=== PATIENT | female | born 1975 | race African-American/Black ===

== ENCOUNTER 2024-11-05 14:58 | Inpatient (IN) | payer MEDICAID ==
[~2024-11-05] VITALS: Ht 157.5 cm; Wt 71.9 kg
[~2024-11-05 14:58] MED LIST: AMLO5TAB88 MT; APIX5TAB MT; ATOR10TA69 PO; B1/B1TAB5 MT; CRAN450T10 MT; ESCI20TA37 PO; FERR-71 MT; GABA-1180 MT; HYDR8TAB18 PO; IPRA3AMP9 NEB; METH-819 PO; ONDA4TAB50 PO; OXYC-580 PO; PANT40TA51 PO; POLY17PO3 MT; SODI15VI INH; VITA100T MT; [UNRECOGNIZED DRUG - CODE] PO
[2024-11-05] MEDS ORDERED: CEFEPIME 2GM IN DEXT 5% 100ML IV ONE (15:30)
[2024-11-05] MEDS: VANCOMYCIN 1G PREMIX 200 ML IV ONE (16:00)
[2024-11-05] MEDS: SODIUM CHLORIDE 0.9% (SEPSIS BOLUS) IV ONE (16:04)
[2024-11-05] MEDS: PANTOPRAZOLE SODIUM 40 MG/VIAL IV ONE (16:04)
[2024-11-05] MEDS: METHYLPREDNISOLONE SOD SUCC 125MG/2ML (ACT-O-VIAL) IV ONE (16:04)
[2024-11-05 16:26] VITALS: PULSE 106; RESP 15; O2SAT 100
[2024-11-05] MEDS: IPRATROPIUM/ALBUTEROL 0.5-3(2.5)MG/3ML NEB HHN ONE (16:26)
[2024-11-05 16:39] LABS: BASOPHILS % 0.7 % (0.0-2.0); DIFFERENTIAL COMMENT 0; EOSINOPHILS % 1.2 % (0.0-5.0); HEMATOCRIT. 30.8 % (36.0-48.0); HEMOGLOBIN. 9.5 g/dL (12.0-16.0); LYMPHOCYTES % 8.6 % (20.0-50.0); MEAN CORPUSCULAR HEMOGLOBIN 23.9 pg (28.0-32.0); MEAN CORPUSCULAR HGB CONC 30.9 g/dL (31.0-37.0); MEAN CORPUSCULAR VOLUME 77.1 fL (81.0-99.0); MEAN PLATELET VOLUME 7.8 fl (7.4-10.4); NEUTROPHILS % 83.5 % (40.0-76.0); PLATELET 611 x1000/uL (130-400); RED BLOOD CELL COUNT 3.99 mill/uL (4.2-5.4); RED CELL DISTRIBUTION WIDTH 17.8 % (11.6-14.6); WHITE BLOOD COUNT 6.5 x1000/uL (4.5-11.0)
[2024-11-05 16:55] LABS: CARBON DIOXIDE 24 mEq/L (21-32); CHLORIDE 98 mEq/L (98-107); SODIUM 133 mEq/L (136-145)
[2024-11-05 16:56] LABS: CALCIUM 8.6 mg/dL (8.7-10.4)
[2024-11-05 17:00] LABS: CREATININE 0.7 mg/dL (0.6-1.0); GLUCOSE 69 mg/dL (70-105)
[2024-11-05 17:01] LABS: UREA NITROGEN BLOOD 10 mg/dL (9-23)
[2024-11-05 17:02] LABS: ALANINE AMINOTRANSFERASE 14 IU/L (10-49); ALBUMIN 3.4 g/dL (3.2-4.8); ASPARTATE AMINOTRANSFERASE 108 IU/L (<34); HCG SCREEN NEGATIVE; LACTATE DEHYDROGENASE > 750 IU/L (120-246)
[2024-11-05 17:03] LABS: BILIRUBIN TOTAL 0.3 mg/dL (0.1-1.0); PROTEIN TOTAL 7.1 g/dL (6.0-8.3)
[2024-11-05 17:04] LABS: BILIRUBIN DIRECT < 0.1 mg/dL (<=3.0); TROPONIN I HIGH SENSITIVITY < 4 ng/L (3.0-34)
[2024-11-05 17:05] LABS: PROTHROMBIN TIME 11.1 sec (9.6-11.0)
[2024-11-05 17:12] LABS: CLARITY URINE CLEAR (CLEAR); COLOR URINE YELLOW (YELLOW); GLUCOSE URINE NEGATIVE (NEGATIVE); KETONES URINE TRACE (NEGATIVE); LEUKOCYTE ESTERASE URINE 2+ (NEGATIVE); NITRITE URINE NEGATIVE (NEGATIVE); OCCULT BLOOD URINE TRACE (NEGATIVE); PH URINE 7.5 (4.5-8.0); PROTEIN URINE NEGATIVE (NEGATIVE); SPECIFIC GRAVITY URINE 1.019 (1.005-1.030)
[2024-11-05] MEDS: CEFEPIME 2GM/50ML DUPLEX 50 ML IV NR (17:30)
[2024-11-05] MEDS: HYDROMORPHONE HCL/PF 2MG/ML INJ IV ONE ×2 (18:10→19:08)
[2024-11-05] MEDS: HYDROMORPHONE HCL/PF 1MG/ML INJ IV NR (18:15)
[2024-11-05 19:06] LABS: BACTERIA URINE 1+; RBC URINE 0-2 /hpf (0-2); SQUAMOUS EPITHELIAL CELL URINE 1+ /lpf (RARE/1+)
[2024-11-05 20:24] LABS: CHLORIDE 101 mEq/L (98-107); POTASSIUM 4.2 mEq/L (3.5-5.1); SODIUM 135 mEq/L (136-145)
[2024-11-05 20:25] LABS: CALCIUM 8.3 mg/dL (8.7-10.4); CARBON DIOXIDE 25 mEq/L (21-32)
[2024-11-05 20:30] LABS: CREATININE 0.6 mg/dL (0.6-1.0); GLUCOSE 85 mg/dL (70-105); UREA NITROGEN BLOOD 10 mg/dL (9-23)
[2024-11-05] MEDS ORDERED: PIPERACILLIN/TAZOBACTAM 3.375 G in DEXTROSE 5% WATER 50 ML IV SCH (21:45)
[2024-11-05] MEDS ORDERED: IPRATROPIUM/ALBUTEROL 0.5-3(2.5)MG/3ML NEB HHN PRN (21:45)
[2024-11-05] MEDS ORDERED: MAGNESIUM/ALUMINUM HYDROXIDE/SIMETHICONE 30ML UDC PO PRN (21:45)
[2024-11-05] MEDS ORDERED: LACTULOSE 20G/30ML UDC PO PRN (22:00)
[2024-11-05] MEDS: DEXT 5%/0.45% NACL 1000ML 1,000 ML IV ONE (22:23)
[2024-11-05] MEDS: ACETAMINOPHEN WITH CODEINE 300/30MG TABLET PO SCH (22:28)
[2024-11-05] MEDS: METHADONE HCL 10MG TABLET PO SCH (22:38)
[2024-11-05] MEDS: HYDROMORPHONE HCL/PF 1MG/ML INJ IV PRN (22:39)
[2024-11-05 23:51] LABS: FERRITIN 382 ng/mL (10-291); FOLIC ACID (FOLATE) SERUM > 20.00 ng/mL (>5.38); IRON 26 ug/dL (50-170); VITAMIN B12 SERUM 1386 pg/mL (211-911)
[2024-11-05 23:53] LABS: TOTAL IRON BINDING CAPACITY 368 ug/dl (250-425)
[2024-11-06] VITALS (12 sets, daily range): BP systolic 131–166; BP diastolic 79–115; PULSE 100–119; RESP 6–24; TEMP 36.4–36.9; O2SAT 96–100
[2024-11-06] MEDS ORDERED: CLONIDINE 0.1MG TABLET PO PRN (03:00)
[2024-11-06 03:18] LABS: PHOSPHORUS 3.7 mg/dL (2.5-4.9)
[2024-11-06] MEDS: CEFEPIME 1GM/50ML 50 ML IV SCH (07:05)
[2024-11-06] MEDS: PANTOPRAZOLE SODIUM 40 MG/VIAL IV SCH (08:49)
[2024-11-06] MEDS: FERROUS SULFATE 325MG TABLET PO SCH ×2 (08:49→18:39)
[2024-11-06] MEDS: MULTIVITAMINS,THER W-MINERALS TABLET PO SCH (08:49)
[2024-11-06] MEDS: DOCUSATE SODIUM 100MG CAPSULE PO SCH (08:49)
[2024-11-06] MEDS: IPRATROPIUM/ALBUTEROL 0.5-3(2.5)MG/3ML NEB HHN SCH (08:50)
[2024-11-06] MEDS ORDERED: FOLIC ACID 1MG TABLET PO SCH (09:00)
[2024-11-06 13:42] LABS: BASOPHILS % 0.3 % (0.0-2.0); DIFFERENTIAL COMMENT 0; EOSINOPHILS % 0.5 % (0.0-5.0); HEMATOCRIT. 34.8 % (36.0-48.0); HEMOGLOBIN. 10.9 g/dL (12.0-16.0); LYMPHOCYTES % 9.9 % (20.0-50.0); MEAN CORPUSCULAR HEMOGLOBIN 23.8 pg (28.0-32.0); MEAN CORPUSCULAR HGB CONC 31.2 g/dL (31.0-37.0); MEAN CORPUSCULAR VOLUME 76.3 fL (81.0-99.0); MEAN PLATELET VOLUME 7.8 fl (7.4-10.4); MONOCYTES % 6.8 % (2.0-8.0); NEUTROPHILS % 82.5 % (40.0-76.0); PLATELET 664 x1000/uL (130-400); RED BLOOD CELL COUNT 4.56 mill/uL (4.2-5.4); WHITE BLOOD COUNT 8.6 x1000/uL (4.5-11.0)
[2024-11-06 13:51] LABS: CHLORIDE 96 mEq/L (98-107); POTASSIUM 4.8 mEq/L (3.5-5.1); SODIUM 133 mEq/L (136-145)
[2024-11-06 13:52] LABS: CARBON DIOXIDE 25 mEq/L (21-32)
[2024-11-06 13:57] LABS: CREATININE 0.7 mg/dL (0.6-1.0); GLUCOSE 83 mg/dL (70-105); TRIGLYCERIDE 101 mg/dL (0-150); UREA NITROGEN BLOOD 10 mg/dL (9-23)
[2024-11-06 13:58] LABS: LDL CHOLESTEROL 79 mg/dL (5-100)
[2024-11-06 13:59] LABS: CHOLESTEROL 142 mg/dL (<200); HDL CHOLESTEROL 45 mg/dL (>65)
[2024-11-06 14:02] LABS: T4 FREE 1.18 ng/dL (0.89-1.76); THYROID STIMULATING HORMONE 4.99 uIU/mL (0.55-4.78)
[2024-11-06 14:13] LABS: HEPATITIS B SURFACE ANTIGEN NEGATIVE (Negative)
[2024-11-06 14:35] LABS: HEPATITIS C AB NON REACTIVE (Neg) (Negative)
[2024-11-06] MEDS: BISACODYL 5MG TABLET PO PRN (18:58)
[2024-11-06] MEDS: ASCORBIC ACID 500 MG TABLET PO SCH (21:38)
[2024-11-06 21:59] LABS: TROPONIN I HIGH SENSITIVITY < 4 ng/L (3.0-34)
[2024-11-07] VITALS (16 sets, daily range): BP systolic 135–157; BP diastolic 86–103; PULSE 65–114; RESP 10–18; TEMP 36.7–37.1; O2SAT 95–99
[2024-11-07 06:23] LABS: CHLORIDE 98 mEq/L (98-107); POTASSIUM 3.9 mEq/L (3.5-5.1); SODIUM 134 mEq/L (136-145)
[2024-11-07 06:25] LABS: CARBON DIOXIDE 24 mEq/L (21-32)
[2024-11-07 06:27] LABS: BASOPHILS % 0.3 % (0.0-2.0); DIFFERENTIAL COMMENT 0; HEMATOCRIT. 31.6 % (36.0-48.0); HEMOGLOBIN. 9.8 g/dL (12.0-16.0); LYMPHOCYTES % 7.6 % (20.0-50.0); MEAN CORPUSCULAR HEMOGLOBIN 23.7 pg (28.0-32.0); MEAN CORPUSCULAR HGB CONC 31.2 g/dL (31.0-37.0); MEAN CORPUSCULAR VOLUME 75.9 fL (81.0-99.0); MEAN PLATELET VOLUME 7.7 fl (7.4-10.4); MONOCYTES % 6.8 % (2.0-8.0); NEUTROPHILS % 84.3 % (40.0-76.0); PLATELET 644 x1000/uL (130-400); RED BLOOD CELL COUNT 4.16 mill/uL (4.2-5.4); RED CELL DISTRIBUTION WIDTH 17.5 % (11.6-14.6); WHITE BLOOD COUNT 7.3 x1000/uL (4.5-11.0)
[2024-11-07 06:31] LABS: CREATININE 0.6 mg/dL (0.6-1.0); GLUCOSE 82 mg/dL (70-105); UREA NITROGEN BLOOD 11 mg/dL (9-23)
[2024-11-07 06:32] LABS: ALANINE AMINOTRANSFERASE < 7 IU/L (10-49); ALBUMIN 3.4 g/dL (3.2-4.8); PROTHROMBIN TIME 10.9 sec (9.6-11.0)
[2024-11-07 06:33] LABS: ASPARTATE AMINOTRANSFERASE 71 IU/L (<34); BILIRUBIN TOTAL 0.2 mg/dL (0.1-1.0); PROTEIN TOTAL 7.2 g/dL (6.0-8.3)
[2024-11-07] MEDS ORDERED: PANT40TA51 PO (15:44)
[2024-11-08] VITALS (11 sets, daily range): BP systolic 128–150; BP diastolic 94–111; PULSE 71–115; RESP 10–19; TEMP 36.8–37.1; O2SAT 94–100
[2024-11-08 07:50] LABS: CHLORIDE 98 mEq/L (98-107); POTASSIUM 3.7 mEq/L (3.5-5.1); SODIUM 136 mEq/L (136-145)
[2024-11-08 07:51] LABS: CALCIUM 8.8 mg/dL (8.7-10.4); CARBON DIOXIDE 27 mEq/L (21-32)
[2024-11-08 07:53] LABS: HEMATOCRIT. 30.5 % (36.0-48.0); HEMOGLOBIN. 9.7 g/dL (12.0-16.0); MEAN CORPUSCULAR HEMOGLOBIN 23.8 pg (28.0-32.0); MEAN CORPUSCULAR HGB CONC 31.7 g/dL (31.0-37.0); MEAN CORPUSCULAR VOLUME 75.1 fL (81.0-99.0); MEAN PLATELET VOLUME 7.6 fl (7.4-10.4); PLATELET 602 x1000/uL (130-400); RED BLOOD CELL COUNT 4.06 mill/uL (4.2-5.4); RED CELL DISTRIBUTION WIDTH 17.5 % (11.6-14.6); WHITE BLOOD COUNT 6.9 x1000/uL (4.5-11.0)
[2024-11-08 07:56] LABS: CREATININE 0.7 mg/dL (0.6-1.0); GLUCOSE 88 mg/dL (70-105); UREA NITROGEN BLOOD 13 mg/dL (9-23)
[2024-11-08] MEDS: ONDANSETRON HCL 4MG/2ML INJ IV PRN (07:57)
[2024-11-08 08:21] LABS: DIFFERENTIAL COMMENT 1
[2024-11-08] MEDS ORDERED: MIRT-144 MT (08:57)
[2024-11-08] MEDS ORDERED: MEGESTROL ACETATE 40MG TABLET PO SCH (12:00)
[2024-11-09 14:53] LABS: ANISOCYTOSIS 1+; MICROCYTOSIS 1+; PLATELET ESTIMATE INCREASED
== END 2024-11-08 12:45 | disposition home or self-care (01) | DRG 136 ==
LOC: ER 14:58 → EDBEDREQ 16:19 → 5EST 20:17 → EDBEDREQTM 20:19 → EDBEDREQ 20:19 → EDBEDREQSVC 20:19 → EDBEDREQ 20:20 → 5EST 11-06 04:24
PROVIDERS: ADMIT Internal Medicine; ATTEND Internal Medicine
DX: C78.01 Secondary malignant neoplasm of right lung (principal); J96.01 Acute respiratory failure with hypoxia; I82.3 Embolism and thrombosis of renal vein; R78.81 Bacteremia; J94.8 Other specified pleural conditions; C64.1 Malignant neoplasm of right kidney, except renal pelvis; I27.20 Pulmonary hypertension, unspecified; D63.8 Anemia in other chronic diseases classified elsewhere; E87.1 Hypo-osmolality and hyponatremia; K92.0 Hematemesis; I50.20 Unspecified systolic (congestive) heart failure; R18.8 Other ascites; I11.0 Hypertensive heart disease with heart failure; E78.5 Hyperlipidemia, unspecified; D75.838 Other thrombocytosis; E11.9 Type 2 diabetes mellitus without complications; D05.11 Intraductal carcinoma in situ of right breast; D25.0 Submucous leiomyoma of uterus; E87.5 Hyperkalemia; F17.210 Nicotine dependence, cigarettes, uncomplicated; J98.19 Other pulmonary collapse; E03.8 Other specified hypothyroidism; F41.9 Anxiety disorder, unspecified; Z90.49 Acquired absence of other specified parts of digestive tract; Z86.718 Personal history of other venous thrombosis and embolism; Z88.0 Allergy status to penicillin; Z92.3 Personal history of irradiation
CPT/HCPCS: 36415; 71045; 71275; 74174; 80048; 80053; 80061; 80076; 81003; 82270; 82607; 82728; 82746; 83540; 83550; 83605; 83615; 83735; 83880; 84100; 84145; 84439; 84443; 84481; 84484; 84703; 85025; 85379; 86705; 86850; 86900; 87340; 93005; 93306; 93970; 94070; 94640; 99291; J0692; J1171; J2405; J2470; J2919; J3370; J7030